=== PATIENT | female | born 1955 | race Caucasian/White ===

== ENCOUNTER 2019-12-25 17:15 | Emergency (ER) | payer BC, OTHER ==
[2019-12-25] MEDS: Aspirin 81 MG Tab.Chew PO ONE (17:24)
[2019-12-25] MEDS ORDERED: Sodium Chloride 0.9% 10 ML Syringe FLUSH PRN (17:25)
--- NOTE | 2019-12-25 17:32 | EDM.PDOC ---
ED HPI GENERAL MEDICAL PROBLEM - General Stated Complaint: CHEST PAIN SOB Time Seen by Provider: 12/25/19 17:15 Source of Information: Reports: Patient History Limitations: Reports: No Limitations - History of Present Illness INITIAL COMMENTS - FREE TEXT/NARRATIVE: Patient comes emergency department today by personal vehicle with complaints of shortness of breath diaphoresis. For most of the week the patient has been very fatigued and really had no energy. Whenever she goes to do any physical exertion outside she becomes very diaphoretic and short of breath. This does improve after she sits down. She has had no fever cough or congestion. She was last tested for COVID last week that was negative. She is had no COVID exposure. She has no diarrhea. She just feels short of breath. No cough or congestion. No fever no chills. No change in taste or smell. Today at about 11:00 she developed a pressure sensation in her midsternum that feels like a constant pressure in her chest. Pain radiates to her left arm and neck. Her shortness of breath is gotten worse even at rest at this time. She also complains of some tingling to the right side of her face. Complain of generalized weakness but no focal deficits. No syncope. Poor appetite. Have a history of high cholesterol no hypertension and never smoked. - Related Data Allergies Allergy/AdvReac Type Severity Reaction Status Date / Time Sulfa (Sulfonamide Allergy Rash Verified 10/15/13 08:57 Antibiotics) Home Meds: Home Meds Ibuprofen [Advil] 200 - 400 mg PO QID PRN 10/20/13 [History] Lysine Acetate [Lysine 4000] 500 mg PO ASDIRECTED PRN 10/20/13 [History] Naproxen Sodium [Aleve] 1 tab PO BID PRN 10/20/13 [History] [place]-3 Fatty Acids/Fish Oil [Fish Oil 1,000 mg Softgel] 1 cap PO DAILY 10/20/13 [History] Potassium Chloride 20 meq PO DAILY 10/20/13 [History] Venlafaxine [Effexor XR] 1 cap PO DAILY 10/20/13 [History] hydroCHLOROthiazide [Hydrochlorothiazide] 25 mg PO DAILY 10/20/13 [History] rOPINIRole HCl [Requip] 1 tab PO DAILY 10/20/13 [History] Cyanocobalamin (Vitamin B-12) [Vitamin B-12] 1,000 mcg PO DAILY 10/23/13 [History] Ferrous Sulfate 325 mg PO DAILY 10/23/13 [History] LORazepam [Ativan] 0.5 mg PO BID PRN #6 tablet 12/25/19 [Rx] ED ROS GENERAL - Review of Systems Review Of Systems: Comprehensive ROS is negative, except as noted in HPI. ED EXAM, GENERAL - Physical Exam Exam: See Below Free Text/Narrative:: The patient is just listless appearing. Exam Limited By: No Limitations General Appearance: Alert, WD/WN Eye Exam: Bilateral Eye: EOMI, PERRL Ears: Normal External Exam Nose: Normal Inspection Throat/Mouth: Normal Inspection, Normal Lips Head: Atraumatic, Normocephalic Neck: Normal Inspection, Supple, Non-Tender Respiratory/Chest: No Respiratory Distress, Lungs Clear, Normal Breath Sounds, Chest Non-Tender Cardiovascular: Normal Peripheral Pulses, Regular Rate, Rhythm GI/Abdominal: Normal Bowel Sounds, Soft, Non-Tender (Female) Exam: Deferred Rectal (Female) Exam: Deferred Back Exam: Normal Inspection Extremities: Normal Inspection, Normal Range of Motion, Non-Tender, Normal Capillary Refill Neurological: Alert, Oriented, Normal Cognition, No Motor/Sensory Deficits Psychiatric: Anxious Skin Exam: Intact, Cool, Diaphoretic, Pallor Course - Orders/Labs/Meds Orders: Active Orders 24 hr Category Date Time Status EKG Documentation Completion [RC] STAT Care 12/25/19 17:25 Active UA RFX HAYDER AND CULT IF INDIC [URIN] Stat Lab 12/25/19 18:07 Ordered Lactated Ringers [Ringers, Lactated] 1,000 ml Med 12/25/19 18:07 Active IV ONETIME Sodium Chloride 0.9% [Saline Flush] Med 12/25/19 17:25 Active 10 ml FLUSH ASDIRECTED PRN flumazeniL [Romazicon] Med 12/25/19 18:06 Active 0.2 mg IVPUSH ASDIRECTED PRN Peripheral IV Insertion Adult [OM.PC] Stat Oth 12/25/19 17:25 Ordered Medication Orders Flumazenil (Romazicon) 0.2 mg IVPUSH ASDIRECTED PRN PRN Reason: Respiratory Depression Lactated Ringer's (Ringers, Lactated) 1,000 mls @ 500 mls/hr IV ONETIME ONE Stop: 12/25/19 20:06 Last Admin: 12/25/19 18:12 Dose: 500 mls/hr Documented by: SANTO Sodium Chloride (Saline Flush) 10 ml FLUSH ASDIRECTED PRN PRN Reason: Keep Vein Open Labs: Laboratory Tests 12/25/19 12/25/19 12/25/19 Range/Units 17:33 17:33 17:36 WBC 4.0 (4.0-10.0) x10^3/uL RBC 4.38 (4.00-5.50) x10^6/uL Hgb 14.0 (12.0-16.0) g/dL Hct 41.2 (33.0-47.0) % MCV 94.1 H (78.0-93.0) fL MCH 32.0 (26.0-32.0) pg MCHC 34.0 (32.0-36.0) g/dL RDW Coeff of Mary Jo 12.5 (10.0-15.0) % Plt Count 206 (130-400) x10^3/uL Neut % (Auto) 44.7 L (50.0-80.0) % Lymph % (Auto) 40.3 (25.0-50.0) % [place] % (Auto) 11.0 (2.0-11.0) % Eos % (Auto) 3.5 (0.0-4.0) % Baso % (Auto) 0.5 (0.2-1.2) % PT (9.5-12.3) SEC INR (2.0-3.5) APTT (25.6-32.8) SEC Sodium 141 (136-145) mmol/L Potassium 3.9 (3.5-5.1) mmol/L Chloride 104 (98-107) mmol/L Carbon Dioxide 26 (21-32) mmol/L Anion Gap 14.9 (10-20) mmol/L BUN 19 H (7-18) mg/dL Creatinine 0.8 (0.55-1.02) mg/dL Est Cr Clr Drug Dosing TNP Estimated GFR (MDRD) > 60 Glucose 104 (74-106) mg/dL Calcium 8.8 (8.5-10.1) mg/dL Corrected Calcium 9.04 (8.5-10.1) mg/dL Total Bilirubin 0.3 (0.2-1.0) mg/dL AST 16 (15-37) U/L ALT 31 (14-59) U/L Alkaline Phosphatase 110 (46-116) U/L POC Troponin I 0.00 (0.00-0.08) ng/mL C-Reactive Protein < 0.2 (<=0.9) mg/dL Total Protein 7.2 (6.4-8.2) g/dL Albumin 3.7 (3.4-5.0) g/dL Globulin 3.5 Albumin/Globulin Ratio 1.06 12/25/19 Range/Units 17:56 WBC (4.0-10.0) x10^3/uL RBC (4.00-5.50) x10^6/uL Hgb (12.0-16.0) g/dL Hct (33.0-47.0) % MCV (78.0-93.0) fL MCH (26.0-32.0) pg MCHC (32.0-36.0) g/dL RDW Coeff of Mary Jo (10.0-15.0) % Plt Count (130-400) x10^3/uL Neut % (Auto) (50.0-80.0) % Lymph % (Auto) (25.0-50.0) % [place] % (Auto) (2.0-11.0) % Eos % (Auto) (0.0-4.0) % Baso % (Auto) (0.2-1.2) % PT 9.5 (9.5-12.3) SEC INR 0.9 L (2.0-3.5) APTT 25.0 L (25.6-32.8) SEC Sodium (136-145) mmol/L Potassium (3.5-5.1) mmol/L Chloride (98-107) mmol/L Carbon Dioxide (21-32) mmol/L Anion Gap (10-20) mmol/L BUN (7-18) mg/dL Creatinine (0.55-1.02) mg/dL Est Cr Clr Drug Dosing Estimated GFR (MDRD) Glucose (74-106) mg/dL Calcium (8.5-10.1) mg/dL Corrected Calcium (8.5-10.1) mg/dL Total Bilirubin (0.2-1.0) mg/dL AST (15-37) U/L ALT (14-59) U/L Alkaline Phosphatase (46-116) U/L POC Troponin I (0.00-0.08) ng/mL C-Reactive Protein (<=0.9) mg/dL Total Protein (6.4-8.2) g/dL Albumin (3.4-5.0) g/dL Globulin Albumin/Globulin Ratio Meds: Medications Generic Name Dose Route Start Last Admin Trade Name Freq PRN Reason Stop Dose Admin Flumazenil 0.2 mg 12/25/19 18:06 Romazicon IVPUSH ASDIRECTED PRN Respiratory Depression Lactated Ringer's 1,000 mls @ 500 mls/hr 12/25/19 18:07 12/25/19 18:12 Ringers, Lactated IV 12/25/19 20:06 500 mls/hr ONETIME ONE Administration Sodium Chloride 10 ml 12/25/19 17:25 Saline Flush FLUSH ASDIRECTED PRN Keep Vein Open Discontinued Medications Generic Name Dose Route Start Last Admin Trade Name Freq PRN Reason Stop Dose Admin Aspirin 324 mg 12/25/19 17:25 Aspirin PO 12/25/19 17:26 ONETIME ONE Lorazepam 1 mg 12/25/19 18:06 12/25/19 18:11 Ativan IVPUSH 12/25/19 18:07 1 mg STAT ONE Administration Nitroglycerin 0.4 mg 12/25/19 17:32 Nitrostat SL 12/25/19 17:33 ONETIME ONE Nitroglycerin 0.4 mg 12/25/19 17:42 Nitrostat SL 12/25/19 17:43 ONETIME ONE Nitroglycerin 0.4 mg 12/25/19 17:48 Nitrostat SL 12/25/19 17:49 ONETIME ONE - Re-Assessments/Exams Free Text/Narrative Re-Assessment/Exam: 12/25/19 18:42 Initially was given Asa 324 orally. Nitro x 3 without some improvement from 5 down to 3. I am when I walked by the room the patient is resting comfortably in the room. Although when I enter the room she starts becoming short of breath and tachypneic. She also has an inspiratory stridor and says that she cannot breathe. She does admit that she has a history of anxiety and her son says that she has a huge history of anxiety. Her EKG is normal. Her laboratory evaluation is normal and her pain that she reports is been going on since 11:00 this morning. Her troponin is negative. When I walked by the room the patient is resting comfortably on the cot. When I enter the room to start talking to her she becomes very anxious complaining of shortness of breath and almost a stridorous inspiration and is clearly having a panic attack. This patient was given a milligram of Ativan with complete resolution of all of her symptoms. Cussing longer with this patient there is really quite a bit of chronic issues here. She has not been able to sleep for years because her sinuses have been congested. She constantly tosses and turns at night she cannot breathe through her nose. She takes Zyrtec for the past 2 years it has not helped her sinuses. She has never tried any nasal saline's rinses or any nasal steroids. She has been sweating constantly for the past few years. This is nothing new. She does have some pretty extensive history of panic attack. She drinks very little water a day and maybe urinates once to twice a day. She drinks a cup of coffee and maybe a glass of water a day. The fluid bolus the patient really is different she was very listless and thus I when she first came in. With the IV fluid and the Ativan she feels absolutely normal and she is denying any symptoms at this time other than her chronic sinus congestion. She has no chest pain no shortness of breath no weakness. She feels back to baseline. We will discharge her home with symptomatic manages for his sinuses. Also use some Ativan as well to help with her panic attacks. I will have her follow-up with primary care for the follow-up of her chronic issues. Discharge directions as below are explained to the patient she was comfortable with this plan and her questions are answered. Departure - Departure Time of Disposition: 19:42 Disposition: Home, Self-Care 01 Clinical Impression: Panic attack Sinusitis Qualifiers: Sinusitis location: unspecified location Chronicity: unspecified Qualified Code(s): J32.9 - Chronic sinusitis, unspecified Prescriptions: LORazepam [Ativan] 0.5 mg PO BID PRN #6 tablet PRN Reason: Anxiety Instructions: Panic Attack, [id number], How to Perform a Sinus Rinse, [id number], How to Perform a Sinus Rinse Referrals: Vivi Richardson, [employer] [Primary Care Provider] - Additional Instructions: Really need to drink more fluids on a regular basis. 8-12 8ounce glasses of water a day. OTC Nasal rinse Netti Pott per instructions twice daily. Then 10 minutes later. OTC flonase/fluticasone 1 spray each nostril twice daily for a week and then 1 spray each nostril daily. You can continue the Zyrtec if you would like. For panic symptoms. Lorazepam 1 tablet twice daily as needed for anxiety. Rx to [facility]. Caution sedation. No drinking or driving after taking this medication. Return to the ED if new or worsening symptoms. Follow up with PCP in the next 7 days for recheck. - My Orders Last 24 Hours: My Active Orders 12/25/19 17:25 EKG Documentation Completion [RC] STAT Sodium Chloride 0.9% [Saline Flush] 10 ml FLUSH ASDIRECTED PRN Peripheral IV Insertion Adult [OM.PC] Stat 12/25/19 18:06 flumazeniL [Romazicon] 0.2 mg IVPUSH ASDIRECTED PRN 12/25/19 18:07 UA RFX HAYDER AND CULT IF INDIC [URIN] Stat Lactated Ringers [Ringers, Lactated] 1,000 ml IV ONETIME - Assessment/Plan Last 24 Hours: My Active Orders 12/25/19 17:25 EKG Documentation Completion [RC] STAT Sodium Chloride 0.9% [Saline Flush] 10 ml FLUSH ASDIRECTED PRN Peripheral IV Insertion Adult [OM.PC] Stat 12/25/19 18:06 flumazeniL [Romazicon] 0.2 mg IVPUSH ASDIRECTED PRN 12/25/19 18:07 UA RFX HAYDER AND CULT IF INDIC [URIN] Stat Lactated Ringers [Ringers, Lactated] 1,000 ml IV ONETIME
[2019-12-25] MEDS: Nitroglycerin 0.4 MG Tab.SL SL ONE ×3 (17:36→17:58)
[2019-12-25 17:58] LABS: CHLORIDE,CL 104 mmol/L (98-107); SODIUM,NA 141 mmol/L (136-145)
[2019-12-25 17:59] LABS: ANION GAP 14.9 mmol/L (10-20)
[2019-12-25] MEDS ORDERED: Flumazenil 0.1 MG/ML 5 ML MDV IVPUSH PRN (18:06)
[2019-12-25] MEDS: LORazepam 2 MG/ML SDV IVPUSH ONE (18:11)
[2019-12-25] MEDS: Lactated Ringers 1,000 ML IV ONE (18:12)
--- NOTE | 2019-12-25 18:21 | CR ---
[id number] RAD/RAD Chest PA or AP 1V EXAM: FRONTAL CHEST INDICATION: Chest pain and shortness of breath. COMPARISON: August 22, 2010 DISCUSSION: Low lung volumes. Mild bibasilar atelectasis and possible infiltrates. Normal heart size. IMPRESSION: 1. Mild bibasilar atelectasis and possible infiltrates. Conor Loza MD 12/25/19 [id number] Thank you for allowing us to participate in the care of your patient.
== END 2019-12-25 20:00 | disposition home or self-care (01) ==
LOC: VM.ED 17:15
DX: F41.0 Panic disorder [episodic paroxysmal anxiety] (principal); J32.9 Chronic sinusitis, unspecified; Z88.2 Allergy status to sulfonamides; Z79.899 Other long term (current) drug therapy
CPT/HCPCS: 36415; 71045; 80053; 84484; 85025; 85610; 85730; 86140; 93005; 96374; 99285; A9270; J2060; J7120; 99284

== ENCOUNTER 2020-03-03 11:11 | Emergency (ER) | payer OTHER ==
[2020-03-03] MEDS ORDERED: Aspirin 81 MG Tab.Chew PO STA (11:29)
[2020-03-03] MEDS ORDERED: Sodium Chloride 0.9% 10 ML Syringe FLUSH PRN (11:33)
[2020-03-03] MEDS ORDERED: GI Cocktail Oral Solution 30 ML PO ONE (11:33)
[2020-03-03] MEDS ORDERED: Flumazenil 0.1 MG/ML 5 ML MDV IVPUSH PRN (11:34)
[2020-03-03] MEDS ORDERED: LORazepam 2 MG/ML SDV IVPUSH ONE (11:34)
--- NOTE | 2020-03-03 12:11 | CR ---
[id number] RAD/RAD Chest PA or AP 1V EXAM: RAD Chest PA or AP 1V INDICATION: CHEST PAIN, SHORTNESS OF BREATH. DISCUSSION: Cardiomediastinal silhouette is normal in size and contour. Subtle linear bibasal parenchymal opacities. Findings are possibly present on the prior examination from November 2019. Appearance is nonspecific. No pleural effusion or pneumothorax. IMPRESSION: Overall, no significant change from December 18, 2019, described above. Dante Hoffman MD 03/03/20 [id number] Thank you for allowing us to participate in the care of your patient.
--- NOTE | 2020-03-03 13:23 | EDM.PDOC ---
ED HPI GENERAL MEDICAL PROBLEM - General Stated Complaint: CHEST PAIN Time Seen by Provider: 03/03/20 13:45 Source of Information: Reports: Patient History Limitations: Reports: No Limitations - History of Present Illness INITIAL COMMENTS - FREE TEXT/NARRATIVE: Patient comes emergency department today with complaints of chest pain. The patient has been complaining of tightness in her chest that is radiated up to her neck since Sunday. The pain is been getting slowly worse and it feels like it squeezing her neck. She does have some shortness of breath but also with quite a bit of anxiety. She does complain of shortness of breath that she has had for the past 2 to 3 years that has gotten somewhat worse in the last 2 to 3 months not related to any physical exertion. She does have some underlying "asthma" that she uses albuterol that does not help her shortness of breath with. She was initially seen in the primary care clinic was told that she had ST elevation on her EKG and was then placed in private vehicle and told to drive herself to the emergency department. She did not receive any aspirin or any nitro from the clinic. Upon arrival she continues to complain of crushing tightness in her chest that radiates up to her neck that gives her shortness of breath. This is been going on since Sunday. She has no history of heart attack in the past. Although she had does have quite a extensive history of anxiety. She has no cough or congestion. No fever no chills. No weakness dizziness lightheadedness. No palpitations or syncope. No abdominal pain nausea or vomiting. No hematuria dysuria or urinary frequency. No black or tarry stools. No paresthesias of the upper or lower extremities. No headache visual acuity changes. She has a globus type sensation in her throat and is able to swallow without difficulty. Chest Pain Score (Numeric/FACES): 2 - Related Data Allergies Allergy/AdvReac Type Severity Reaction Status Date / Time Sulfa (Sulfonamide Allergy Rash Verified 03/03/20 20:17 Antibiotics) Home Meds: Home Meds Ibuprofen [Advil] 200 - 400 mg PO QID PRN 10/20/13 [History] Lysine Acetate [Lysine 4000] 500 mg PO ASDIRECTED PRN 10/20/13 [History] Venlafaxine [Effexor XR] 150 mg PO DAILY 10/20/13 [History] rOPINIRole HCl [Requip] 2 mg PO DAILY 10/20/13 [History] Melatonin 10 mg PO BEDTIME 03/03/20 [History] atorvaSTATin Calcium [Lipitor] 40 mg PO DAILY 03/03/20 [History] buPROPion [Wellbutrin] 100 mg PO BID 03/03/20 [History] ED ROS GENERAL - Review of Systems Review Of Systems: Comprehensive ROS is negative, except as noted in HPI. ED EXAM, GENERAL - Physical Exam Exam: See Below Exam Limited By: No Limitations General Appearance: Alert, WD/WN, No Apparent Distress, Anxious (quite anxious. ) Ears: Normal External Exam Nose: Normal Inspection Throat/Mouth: Normal Inspection Head: Atraumatic, Normocephalic Neck: Normal Inspection, Supple Respiratory/Chest: No Respiratory Distress, Lungs Clear, Normal Breath Sounds, Chest Non-Tender Cardiovascular: Normal Peripheral Pulses, Regular Rate, Rhythm Peripheral Pulses: 2+: Radial (L), Radial (R), Posterior Tibial (L), Posterior Tibial (R), Dorsalis Pedis (L), Dorsalis Pedis (R) GI/Abdominal: Normal Bowel Sounds, Soft, Non-Tender Back Exam: Normal Inspection, Full Range of Motion Extremities: Normal Inspection, Normal Range of Motion, Normal Capillary Refill Neurological: Alert, Oriented, CN II-XII Intact, Normal Cognition, Normal Gait, No Motor/Sensory Deficits Psychiatric: Normal Affect, Normal Mood Skin Exam: Warm, Dry, Intact, Normal Color Course - Vital Signs Last Recorded V/S: Last Vital Signs Temp 98.2 F 03/03/20 11:19 Pulse 82 03/03/20 13:37 Resp 18 03/03/20 12:30 BP 138/99 H 03/03/20 13:37 Pulse Ox 95 03/03/20 12:30 - Orders/Labs/Meds Labs: Laboratory Tests 03/03/20 Range/Units 11:35 WBC 4.2 (4.0-10.0) x10^3/uL RBC 4.60 (4.00-5.50) x10^6/uL Hgb 14.5 (12.0-16.0) g/dL Hct 43.3 (33.0-47.0) % MCV 94.1 H (78.0-93.0) fL MCH 31.5 (26.0-32.0) pg MCHC 33.5 (32.0-36.0) g/dL RDW Coeff of Mary Jo 12.7 (10.0-15.0) % Plt Count 228 (130-400) x10^3/uL Neut % (Auto) 46.3 L (50.0-80.0) % Lymph % (Auto) 37.8 (25.0-50.0) % [place] % (Auto) 12.0 H (2.0-11.0) % Eos % (Auto) 3.4 (0.0-4.0) % Baso % (Auto) 0.5 (0.2-1.2) % Meds: Medications Discontinued Medications Generic Name Dose Route Start Last Admin Trade Name Freq PRN Reason Stop Dose Admin Al Hydroxide/Mg Hydroxide 30 ml 03/03/20 11:33 03/03/20 11:38 Gi Cocktail PO 03/03/20 11:34 30 ml ONETIME ONE Administration Aspirin 324 mg 03/03/20 11:29 03/03/20 11:29 Aspirin PO 03/03/20 11:30 324 mg STAT STA Administration Flumazenil 0.2 mg 03/03/20 11:34 Romazicon IVPUSH ASDIRECTED PRN Respiratory Depression Lorazepam 1 mg 03/03/20 11:34 03/03/20 11:45 Ativan IVPUSH 03/03/20 11:35 1 mg STAT ONE Administration Sodium Chloride 10 ml 03/03/20 11:33 Saline Flush FLUSH ASDIRECTED PRN Keep Vein Open - Re-Assessments/Exams Free Text/Narrative Re-Assessment/Exam: Upon arrival the patient was given 4 chewable baby aspirin's. She was also given a GI cocktail. EKG shows normal sinus rhythm without ST elevation or depression when reviewed extemporaneously by myself. The patient had quite a bit of improvement in the globus sensation in her throat did not improve her chest pain. She was given a milligram of Ativan. Chest x-ray per radiology shows cardiomediastinal silhouette is normal in size and contour some chronic parenchymal opacities otherwise unremarkable chest x- ray. Laboratory evaluation is unremarkable as well as a troponin less than 0.017. As of note this patient has had chest pain for multiple days starting on Sunday. The patient has almost complete resolution of her chest pain chest tightness neck pain following the administration of the Ativan. I really wonder if this is not some kind of underlying anxiety component. She has struggled with anxiety for many years. Her EKG is normal as well as her troponin and she has had chest pain since Sunday. She has struggled with panic attacks in the past. We will discharge her home at this time with a short course of Ativan to see if this helps with her concerning panic attacks at home. Although she does complain of some chronic shortness of breath that does not improve with \\albuterol inhaler. And some crescendoing of this shortness of breath over the past couple of months. She does not complain of any fatigue or malaise. With this shortness of breath and her chest pain I think that is best that she sees her primary care provider in the next week or so consideration of a stress test with her shortness of breath and the crescendoing of it recently. She is comfortable with this plan and her questions are answered. Departure - Departure Time of Disposition: 13:13 Disposition: Home, Self-Care 01 Clinical Impression: Panic attack, Non-cardiac chest pain Instructions: Panic Attack, [id number], Nonspecific Chest Pain, Adult Referrals: Vivi Richardson [employer] [Primary Care Provider] - Forms: ED Department Discharge Additional Instructions: See your PCP in the next week consider a Stress test due to the long standing history of SOB. For any of the reoccurrence of the Shortness of breath panic attack like symptoms try the Lorazepam 1 tablet under the tongue twice daily. Rx to [facility]. Continue with your previous medications. Return to the ED if new or worsening symptoms.
== END 2020-03-03 13:45 | disposition home or self-care (01) ==
LOC: VM.ED 11:11
DX: F41.0 Panic disorder [episodic paroxysmal anxiety] (principal); Z88.2 Allergy status to sulfonamides; Z79.899 Other long term (current) drug therapy
CPT/HCPCS: 71045; 85025; 93005; 96374; 99285; A9270; J2060; 99284